=== PATIENT | female | born 2000 | race African-American/Black ===

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

== ENCOUNTER 2021-04-27 16:17 | Emergency (ER) | payer OTHER ==
[2021-04-27] MEDS ORDERED: Ondansetron ODT 4 MG TAB ONE (16:29)
[2021-04-27] MEDS ORDERED: Promethazine HCl 25 MG/ML VIAL ONE (17:28)
[2021-04-27] MEDS ORDERED: HYDROcodone/Acetaminophen 10/325 mg Tablet ONE (20:31)
== END 2021-04-27 18:58 | disposition home or self-care (01) ==
LOC: ERS 16:17
DX: R11.2 Nausea with vomiting, unspecified (principal); R19.7 Diarrhea, unspecified
CPT/HCPCS: J0500; J2550; Q0162

== ENCOUNTER 2021-04-28 04:43 | Emergency (ER) | payer OTHER ==
[2021-04-28] MEDS ORDERED: Ondansetron PF 4 MG/2 ML Vial ONE ×2 (05:08→06:34)
[2021-04-28 05:37] LABS: #Lymphocytes 1.3 thou/uL (1.20-3.40); #Monocytes 0.5 thou/uL (0.11-0.59); #Neutrophils 6.3 thou/uL (1.40-6.50); %Basophils 0.4 % (0.0-1.0); %Eosinophils 0.1 % (0.0-10.0); %Lymphocytes 16.2 % (28.0-48.0); %Monocytes 5.5 % (0.0-4.0); %Neutrophils 77.8 % (31.0-61.0); Hemoglobin 11.8 g/dL (12.0-16.0); Mean Corpuscular HGB CONC 31.3 g/dL (32.0-36.0); Mean Corpuscular Hemoglobin 25.1 pg (25.0-35.0); Mean Corpuscular Volume 80.2 fL (78.0-98.0); Mean Platelet Volume 8.4 fL (7.4-10.4); Platelet Count 455 thou/uL (130-400); RBC Distribution Width 14.4 % (11.5-14.5); White Blood Cell (WBC) Count 8.1 thou/uL (4.8-10.8)
[2021-04-28 05:54] LABS: BHCG - Serum Negative (NEGATIVE); Pregs Control Background? CLEAR/WHITE (CLR/WHITE); Pregs Control Bar Appear? YES (CONTROL BAR)
[2021-04-28 05:55] LABS: ALT (SGPT) 13 U/L (8-55); AST (SGOT) 19 U/L (5-30); Albumin 4.9 g/dL (3.5-5.0); Alkaline Phosphatase 77 U/L (40-100); Anion Gap 17 mmol/L (10-20); BUN (Urea Nitrogen) 10 mg/dL (8.4-21.0); Bilirubin, Total 0.6 mg/dL (0.2-1.2); Calc. Creatinine Clearance 0 mL/min (70-130); Calcium 10.5 mg/dL (7.8-10.44); Carbon Dioxide 19 mmol/L (22-29); Chloride 103 mmol/L (98-107); Globulin 4.2 g/dL (2.4-3.5); Glucose 105 mg/dL (70-105); Potassium 3.6 mmol/L (3.5-5.1); Protein, Total 9.1 g/dL (6.0-8.3); Sodium 135 mmol/L (136-145)
== END 2021-04-28 07:45 | disposition home or self-care (01) ==
LOC: ERS 04:43
DX: R11.2 Nausea with vomiting, unspecified (principal); R10.9 Unspecified abdominal pain; R19.7 Diarrhea, unspecified
CPT/HCPCS: 80053; 84703; 85025; 93005; 96360; 96372; 96374; 96376; J0500; J2405; J2550; Q0162

== ENCOUNTER 2021-05-01 18:32 | Emergency (ER) | payer OTHER ==
[2021-05-01 19:42] LABS: Mean Corpuscular HGB CONC 32.6 g/dL (32.0-36.0); Mean Corpuscular Hemoglobin 26.1 pg (25.0-35.0); Mean Corpuscular Volume 80.1 fL (78.0-98.0); Mean Platelet Volume 8.2 fL (7.4-10.4); Platelet Count 473 thou/uL (130-400); RBC Distribution Width 14.1 % (11.5-14.5); Red Blood Cell (RBC) Count 5.35 mill/uL (4.00-5.20); White Blood Cell (WBC) Count 6.7 thou/uL (4.8-10.8)
[2021-05-01 20:01] LABS: Eosinophils 1 % (0-10); Lymphocytes 40 % (28-48); MDiff Complete? YES; Monocytes 13 % (0-4); Neutrophil 45 % (31-61); RBC Morphology Normal; Vacuoles SLIGHT
[2021-05-01 20:21] LABS: Albumin 4.6 g/dL (3.5-5.0)
[2021-05-01] MEDS ORDERED: Ondansetron PF 4 MG/2 ML Vial ONE (20:21)
[2021-05-01 20:22] LABS: Chloride 99 mmol/L (98-107); Sodium 132 mmol/L (136-145)
[2021-05-01 20:23] LABS: Calcium 10.2 mg/dL (7.8-10.44); Globulin 4.6 g/dL (2.4-3.5); Glucose 72 mg/dL (70-105); Protein, Total 9.2 g/dL (6.0-8.3)
[2021-05-01 20:25] LABS: Bilirubin, Total 0.7 mg/dL (0.2-1.2); Carbon Dioxide 13 mmol/L (22-29)
[2021-05-01 20:26] LABS: Alkaline Phosphatase 77 U/L (40-100)
[2021-05-01 20:27] LABS: Calc. Creatinine Clearance 0 mL/min (70-130)
[2021-05-01 20:28] LABS: AST (SGOT) 28 U/L (5-30); BUN (Urea Nitrogen) 12 mg/dL (8.4-21.0)
[2021-05-01 20:29] LABS: ALT (SGPT) 12 U/L (8-55); Lipase 47 U/L (8-78)
[2021-05-01 20:51] LABS: Anion Gap 24 mmol/L (10-20)
[2021-05-01 21:55] LABS: Bilirubin Negative (Negative); Blood, Urine Negative (Negative); Clarity Clear (Clear); Glucose, Urine (Dipstick) Normal (Negative); Ketone, Urine 150 mg/dL (Negative); Leukocyte 250 Leu/uL (Negative); Mucous/LPF Rare LPF (<2+); Nitrite Negative (Negative); Protein, Urine (Dipstick) 20 mg/dL (Neg-Trace); RBC/HPF 0-3 HPF (0-3); Specific Gravity, Urine 1.023 (1.002-1.036); Urobilinogen 3 mg/dL (Less than 2)
[2021-05-01 21:56] LABS: Bacteria/HPF 1+ HPF (None Seen); Pregnancy Test - Urine (BHCG) Negative (Negative); Pregu Control Background? CLEAR/WHITE (CLR/WHITE); Pregu Control Bar Appear? YES (CONTROL BAR); Specific Gravity 1.023 (1.002-1.036)
[2021-05-01 22:03] LABS: Amphetamine Not Detected (NotDetected); Barbiturates Screen Not Detected (NotDetected); Benzodiazepine Screen Not Detected (NotDetected); Cocaine Metabolite Screen Not Detected (NotDetected); Methadone Not Detected (NotDetected); Methamphetamine Not Detected (NotDetected); Opiate Screen Not Detected (NotDetected); Oxycodone Screen Not Detected (NotDetected); Phencyclidine (PCP) Not Detected (NotDetected); THC/Cannabinoid Screen Detected (NotDetected); Tricyclic Screen Not Detected (NotDetected)
== END 2021-05-01 23:20 | disposition home or self-care (01) ==
LOC: ERS 18:32
DX: F12.988 Cannabis use, unspecified with other cannabis-induced disorder (principal); E86.0 Dehydration; R11.2 Nausea with vomiting, unspecified
CPT/HCPCS: 36415; 80053; 80306; 81003; 81015; 81025; 83605; 83690; 85025; 87040; 87086; 94760; J2405

== ENCOUNTER 2022-02-06 17:46 | Inpatient (IN) | payer OTHER ==
[~2022-02-06 17:46] MED LIST: Iopamidol-370 76% 500 ML 1 ML ONE
[2022-02-06] MEDS ORDERED: Promethazine HCl 12.5 MG in Sodium Chloride 0.9% 50 ML IVPB SCH (18:45)
[2022-02-06 18:49] LABS: Bilirubin Negative (Negative); Blood, Urine Negative (Negative); Clarity Clear (Clear); Glucose, Urine (Dipstick) Normal (Negative); Ketone, Urine Greater than 150 mg/dL (Negative); Leukocyte Negative Leu/uL (Negative); Nitrite Negative (Negative); Protein, Urine (Dipstick) 50 mg/dL (Neg-Trace); Specific Gravity, Urine 1.031 (1.002-1.036); Urobilinogen Normal mg/dL (Less than 2); pH, Urine 6.5 (5.0-9.0)
[2022-02-06] MEDS ORDERED: Dicyclomine 20 MG/2 ML VIAL ONE (18:53)
[2022-02-06] MEDS ORDERED: Ketorolac Tromethamine 30 MG/ML VIAL ONE (18:54)
[2022-02-06 18:57] LABS: Bacteria/HPF 1+ HPF (None Seen); Mucous/LPF 1+ LPF (<2+)
[2022-02-06 19:10] LABS: #Monocytes 0.4 thou/uL (0.11-0.59); %Basophils 0.1 % (0.0-1.0); %Eosinophils 0.1 % (0.0-10.0); %Lymphocytes 18.7 % (28.0-48.0); %Monocytes 6.5 % (0.0-4.0); %Neutrophils 74.6 % (31.0-61.0); Hemoglobin 11.3 g/dL (12.0-16.0); Mean Corpuscular HGB CONC 32.9 g/dL (32.0-36.0); Mean Corpuscular Hemoglobin 27.4 pg (25.0-35.0); Mean Corpuscular Volume 83.1 fL (78.0-98.0); Mean Platelet Volume 9.7 fL (7.4-10.4); Platelet Count 281 thou/uL (130-400); RBC Distribution Width 13.7 % (11.5-14.5); Red Blood Cell (RBC) Count 4.14 mill/uL (4.00-5.20); White Blood Cell (WBC) Count 5.3 thou/uL (4.8-10.8)
[2022-02-06 19:15] LABS: BHCG - Serum Negative (NEGATIVE); Pregs Control Background? CLEAR/WHITE (CLR/WHITE); Pregs Control Bar Appear? YES (CONTROL BAR)
[2022-02-06 20:02] LABS: ALT (SGPT) 12 U/L (8-55); AST (SGOT) 22 U/L (5-34); Albumin 4.8 g/dL (3.5-5.0); Alkaline Phosphatase 71 U/L (40-100); Anion Gap 20 mmol/L (10-20); BUN (Urea Nitrogen) 11 mg/dL (7.0-18.7); Bilirubin, Total 0.6 mg/dL (0.2-1.2); Calc. Creatinine Clearance 0 mL/min (70-130); Calcium 9.5 mg/dL (7.8-10.44); Carbon Dioxide 16 mmol/L (22-29); Chloride 108 mmol/L (98-107); Estimated GFR 110; Globulin 3.2 g/dL (2.4-3.5); Glucose 87 mg/dL (70-105); Lipase 19 U/L (8-78); Potassium 3.8 mmol/L (3.5-5.1); Sodium 140 mmol/L (136-145)
[2022-02-06] MEDS ORDERED: Piperacillin/Tazobactam 3.375 GM VIAL ONE (20:20)
[2022-02-06] MEDS ORDERED: Ondansetron PF 4 MG/2 ML Vial ONE (20:42)
[2022-02-06] MEDS ORDERED: Acetaminophen 325 MG TAB PO PRN (21:06)
[2022-02-06 22:06] LABS: Lactic Acid 1.5 mmol/L (0.5-2.2)
[2022-02-06] MEDS: Lactated Ringer's 1,000 ML IV SCH (23:34)
[2022-02-06] MEDS: Promethazine HCl 12.5 MG in Sodium Chloride 0.9% 50 ML IVPB PRN (23:34)
[2022-02-07] MEDS: Ondansetron PF 4 MG/2 ML Vial IVP PRN ×3 (02:30→18:28)
[2022-02-07] MEDS: Lactated Ringer's 1,000 ML IV SCH ×2 (06:08→14:34)
[2022-02-07] MEDS: Promethazine HCl 12.5 MG in Sodium Chloride 0.9% 50 ML IVPB PRN ×3 (07:02→20:31)
[2022-02-07 07:05] LABS: Hemoglobin 11.6 g/dL (12.0-16.0); Mean Corpuscular HGB CONC 31.8 g/dL (32.0-36.0); Mean Corpuscular Hemoglobin 26.9 pg (25.0-35.0); Mean Corpuscular Volume 84.6 fL (78.0-98.0); Mean Platelet Volume 8.8 fL (7.4-10.4); Platelet Count 314 thou/uL (130-400); RBC Distribution Width 13.8 % (11.5-14.5); Red Blood Cell (RBC) Count 4.32 mill/uL (4.00-5.20); White Blood Cell (WBC) Count 6.3 thou/uL (4.8-10.8)
[2022-02-07 07:34] LABS: Anion Gap 15 mmol/L (10-20); BUN (Urea Nitrogen) 10 mg/dL (7.0-18.7); Calc. Creatinine Clearance 0 mL/min (70-130); Calcium 8.9 mg/dL (7.8-10.44); Carbon Dioxide 19 mmol/L (22-29); Chloride 106 mmol/L (98-107); Estimated GFR 125; Glucose 90 mg/dL (70-105); Potassium 3.2 mmol/L (3.5-5.1); Sodium 137 mmol/L (136-145)
[2022-02-07] MEDS ORDERED: Potassium Chloride 40 MEQ in Sodium Chloride 0.9% 250 ML 250 ML IVPB SCH (08:15)
[2022-02-07 10:29] LABS: Band 5 % (5-11); Eosinophils 2 % (0-10); Lymphocytes 26 % (28-48); MDiff Complete? YES; Monocytes 6 % (0-4); Neutrophil 61 % (31-61); RBC Morphology Normal
[2022-02-07] MEDS ORDERED: Calcium Carbonate 500 MG ChewTAB PO PRN (12:15)
[2022-02-07] MEDS ORDERED: Pantoprazole 40 MG VIAL IVP SCH (15:45)
[2022-02-07] MEDS ORDERED: Capsaicin 0.025% Cream 60 gm Tube TOP SCH ×2 (22:45→22:46)
[2022-02-08] MEDS: Ondansetron PF 4 MG/2 ML Vial IVP PRN ×2 (02:53→20:06)
[2022-02-08] MEDS: Lactated Ringer's 1,000 ML IV SCH ×2 (02:53→06:35)
[2022-02-08] MEDS: Capsaicin 0.025% Cream 60 gm Tube TOP SCH ×3 (09:33→20:13)
[2022-02-08] MEDS: Promethazine HCl 12.5 MG in Sodium Chloride 0.9% 50 ML IVPB PRN (09:51)
[2022-02-08] MEDS ORDERED: Haloperidol Lactate 5 MG/ML VIAL SLOW IVP SCH (14:30)
[2022-02-08] MEDS: Ondansetron ODT 4 MG TAB PO PRN (15:48)
[2022-02-08] MEDS ORDERED: Haloperidol 1 MG TAB PO SCH (16:00)
[2022-02-08] MEDS ORDERED: Promethazine HCl 12.5 MG in Sodium Chloride 0.9% 50 ML IVPB PRN (18:53)
[2022-02-09] MEDS: Ondansetron PF 4 MG/2 ML Vial IVP PRN (04:13)
[2022-02-09 07:31] LABS: Anion Gap 19 mmol/L (10-20); BUN (Urea Nitrogen) 12 mg/dL (7.0-18.7); Calc. Creatinine Clearance 0 mL/min (70-130); Calcium 9.3 mg/dL (7.8-10.44); Carbon Dioxide 17 mmol/L (22-29); Chloride 100 mmol/L (98-107); Estimated GFR 115; Glucose 77 mg/dL (70-105); Potassium 3.4 mmol/L (3.5-5.1); Sodium 133 mmol/L (136-145)
[2022-02-09] MEDS ORDERED: Potassium Chloride 20 MEQ in Premix Bag 1 BAG IVPB SCH (11:15)
[2022-02-09] MEDS: Capsaicin 0.025% Cream 60 gm Tube TOP SCH ×3 (11:33→21:16)
[2022-02-09] MEDS: Promethazine 25 MG TAB PO PRN (18:45)
[2022-02-10] MEDS: Ondansetron ODT 4 MG TAB PO PRN ×2 (07:16→14:01)
[2022-02-10] MEDS: Capsaicin 0.025% Cream 60 gm Tube TOP SCH ×3 (10:57→20:02)
[2022-02-10] MEDS: Promethazine 25 MG TAB PO PRN (17:14)
[2022-02-10] MEDS: Ondansetron PF 4 MG/2 ML Vial IVP PRN ×2 (17:36→22:25)
[2022-02-11] MEDS: Ondansetron PF 4 MG/2 ML Vial IVP PRN ×2 (02:49→07:58)
[2022-02-11] MEDS: Promethazine 25 MG TAB PO PRN (09:30)
[2022-02-11] MEDS ORDERED: Metoclopramide HCl 10 MG TAB PO PRN (09:36)
[2022-02-11] MEDS: Capsaicin 0.025% Cream 60 gm Tube TOP SCH (10:41)
[2022-02-11] MEDS ORDERED: PROPOFOL 200 MG/20 ML VIAL ONE (12:39)
[2022-02-11] MEDS ORDERED: Promethazine 25 MG TAB PO PRN (12:44)
[2022-02-11] MEDS ORDERED: Ondansetron PF 4 MG/2 ML Vial ONE (12:49)
[2022-02-11] MEDS ORDERED: Promethazine HCl 25 MG/ML VIAL IM PRN (12:51)
[2022-02-11] MEDS ORDERED: Ondansetron HCl/PF 4 MG/2 ML Vial IVP PRN (12:51)
[2022-02-11] MEDS ORDERED: Promethazine HCl 25 MG/ML VIAL IVPB PRN (12:51)
[2022-02-11] MEDS ORDERED: Lidocaine 1% PF 5 ML VIAL ONE (12:53)
[2022-02-11] MEDS ORDERED: Capsaicin 0.025% Cream 60 gm Tube TOP SCH (13:00)
[2022-02-11] MEDS ORDERED: Ondansetron ODT 4 MG TAB PO SCH (13:00)
[2022-02-11] MEDS ORDERED: Promethazine HCl 25 MG/ML VIAL ONE (13:05)
[2022-02-11] MEDS ORDERED: Metoclopramide HCl 10 MG/2 ML VIAL ONE (13:22)
[2022-02-11] MEDS ORDERED: Labetalol HCl 100 MG/20 ML VIAL ONE (13:22)
[2022-02-11] MEDS ORDERED: Metoclopramide HCl 10 MG/2 ML VIAL IVP PRN (13:40)
[2022-02-11] MEDS ORDERED: Methyl Salicylate/Menthol 85 GM TUBE TOP SCH (13:45)
[2022-02-11] MEDS: Metoclopramide HCl 10 MG TAB PO SCH ×4 (14:10→23:59)
[2022-02-11] MEDS: Dextrose 5 % And 0.9 % NaCl 1,000 ML IV SCH (14:39)
[2022-02-11] MEDS: Ondansetron ODT 4 MG TAB PO SCH ×2 (16:57→23:59)
[2022-02-11] MEDS: Methyl Salicylate/Menthol 85 GM TUBE TOP SCH (20:56)
[2022-02-12] MEDS: Dextrose 5 % And 0.9 % NaCl 1,000 ML IV SCH ×2 (03:01→04:05)
[2022-02-12] MEDS: Metoclopramide HCl 10 MG TAB PO SCH ×2 (04:01→09:54)
[2022-02-12] MEDS: Ondansetron ODT 4 MG TAB PO SCH ×2 (05:35→12:42)
[2022-02-12] MEDS: Methyl Salicylate/Menthol 85 GM TUBE TOP SCH (09:54)
[2022-02-12 12:55] VITALS: BP 103/74; TEMP 97.8
[2022-02-12 18:38] LABS: Cytoplasmic (C-ANCA) <1:20 titer (Neg:<1:20); Myeloperoxidase AutoAbs <0.2 units (0.0-0.9); Perinuclear (P-ANCA) <1:20 titer (Neg:<1:20); Proteinase-3 AutoAbs Less than 0.2 units (0.0-0.9)
== END 2022-02-12 12:54 | disposition home or self-care (01) | DRG 392 ==
LOC: ERS 17:46 → T4-B 20:48 → OBSVTOIN 02-08 14:09
PROVIDERS: ADMIT Family Medicine; ATTEND Family Medicine
PROC: 0DB68ZX Excision of Stomach, Via Natural or Artificial Opening Endoscopic, Diagnostic (ICD-10-PCS; principal; 2022-02-11)
DX: R11.2 Nausea with vomiting, unspecified (principal); E87.2 Acidosis; F17.290 Nicotine dependence, other tobacco product, uncomplicated; K29.70 Gastritis, unspecified, without bleeding; K44.9 Diaphragmatic hernia without obstruction or gangrene; I88.0 Nonspecific mesenteric lymphadenitis; K21.00 Gastro-esophageal reflux disease with esophagitis, without bleeding; F12.10 Cannabis abuse, uncomplicated; K52.9 Noninfective gastroenteritis and colitis, unspecified; Z20.822 Contact with and (suspected) exposure to COVID-19; Z98.890 Other specified postprocedural states; Z71.6 Tobacco abuse counseling
CPT/HCPCS: 36415; 36416; 74177; 80048; 80053; 81003; 81015; 83516; 83605; 83690; 84703; 85025; 85652; 86037; 86140; 87040; 88305; 88342; 96365; 96367; 96372; 96375; 96376; C9113; G0378; J1885; J2405; J2543; J2550; J2704; J2765; J3480; J7042; J7050; J7120; Q0162; Q0169; Q9967

== ENCOUNTER 2022-08-14 16:01 | Emergency (ER) | payer OTHER ==
[2022-08-14 16:37] LABS: #Lymphocytes 1.3 thou/uL (1.20-3.40); #Monocytes 0.3 thou/uL (0.11-0.59); #Neutrophils 5.1 thou/uL (1.40-6.50); %Basophils 0.3 % (0.0-1.0); %Eosinophils 0.4 % (0.0-10.0); %Monocytes 4.9 % (0.0-10.0); %Neutrophils 75.4 % (42.0-75.0); Hemoglobin 13.3 g/dL (12.0-16.0); Mean Corpuscular HGB CONC 34.1 g/dL (32.0-36.0); Mean Corpuscular Hemoglobin 30.1 pg (27.0-31.0); Mean Corpuscular Volume 88.1 fl (78.0-98.0); Mean Platelet Volume 8.5 fL (7.4-10.4); Platelet Count 344 10x3/uL (130-400); RBC Distribution Width 12.3 % (11.5-14.5); Red Blood Cell (RBC) Count 4.43 mill/uL (4.20-5.40); White Blood Cell (WBC) Count 6.8 10x3/uL (4.8-10.8)
[2022-08-14 16:41] LABS: Pregs Control Background? CLEAR/WHITE (CLR/WHITE); Pregs Control Bar Appear? YES (CONTROL BAR)
[2022-08-14 16:45] LABS: BHCG - Serum POSITIVE (NEGATIVE)
[2022-08-14 16:59] LABS: ALT (SGPT) 16 U/L (8-55); AST (SGOT) 21 U/L (5-34); Albumin 4.8 g/dL (3.5-5.0); Alkaline Phosphatase 66 U/L (40-110); Anion Gap 17 mmol/L (10-20); BUN (Urea Nitrogen) 9 mg/dL (7.0-18.7); Bilirubin, Total 0.5 mg/dL (0.2-1.2); Calc. Creatinine Clearance 0 mL/min (70-130); Calcium 9.9 mg/dL (7.8-10.44); Carbon Dioxide 14 mmol/L (22-29); Chloride 107 mmol/L (98-107); Estimated GFR 122; Globulin 3.5 g/dL (2.4-3.5); Glucose 115 mg/dL (70-105); Lipase 20 U/L (8-78); Potassium 3.7 mmol/L (3.5-5.1); Protein, Total 8.3 g/dL (6.0-8.3); Sodium 134 mmol/L (136-145)
[2022-08-14] MEDS ORDERED: Ondansetron ODT 4 MG TAB ONE (17:38)
[2022-08-14] MEDS ORDERED: Promethazine HCl 25 MG in Sodium Chloride 0.9% 50 ML IVPB SCH (19:45)
[2022-08-14] MEDS ORDERED: Metoclopramide HCl 10 MG/2 ML VIAL ONE (21:56)
== END 2022-08-14 23:13 | disposition home or self-care (01) ==
LOC: ERS 16:01
DX: O21.9 Vomiting of pregnancy, unspecified (principal); Z3A.01 Less than 8 weeks gestation of pregnancy
CPT/HCPCS: 36415; 76856; 80053; 83690; 84702; 84703; 85025; 93976; 96365; 96366; 96375; J2550; J2765; Q0162

== ENCOUNTER 2023-04-04 22:38 | Emergency (ER) | payer OTHER | END 2023-04-05 00:18 | disposition short-term general hospital (02) | LOC: ERS 22:38 | DX: O60.03 Preterm labor without delivery, third trimester (principal); Z3A.37 37 weeks gestation of pregnancy | CPT/HCPCS: 99284 ==

== ENCOUNTER 2023-07-19 20:49 | Emergency (ER) | payer OTHER ==
[~2023-07-19 20:49] MED LIST changes: -Iopamidol-370 76% 500 ML 1 ML ONE; +Iopamidol-370 76% 500 ML MDV (1 ML CHARGE) ONE
[2023-07-19 21:55] LABS: #Eosinphils 0.2 thou/uL (0.0-0.7); #Monocytes 0.9 thou/uL (0.11-0.59); #Neutrophils 4.9 thou/uL (1.40-6.50); %Basophils 0.5 % (0.0-1.0); %Eosinophils 2.4 % (0.0-10.0); %Lymphocytes 20.4 % (21.0-51.0); %Monocytes 11.5 % (0.0-10.0); %Neutrophils 64.9 % (42.0-75.0); Hematocrit 36.3 % (36.0-47.0); Hemoglobin 11.6 g/dL (12.0-16.0); Mean Corpuscular Hemoglobin 26.1 pg (27.0-31.0); Mean Corpuscular Volume 81.8 fl (78.0-98.0); Platelet Count 158 10x3/uL (130-400); RBC Distribution Width 15.8 % (11.5-14.5); Red Blood Cell (RBC) Count 4.44 mill/uL (4.20-5.40); White Blood Cell (WBC) Count 7.6 10x3/uL (4.8-10.8)
[2023-07-19] MEDS ORDERED: Dexamethasone 10 MG/ML VIAL ONE (21:57)
[2023-07-19] MEDS ORDERED: Morphine 4 MG/ML VIAL ONE (21:57)
[2023-07-19] MEDS ORDERED: Ketorolac Tromethamine 30 MG (1 mL) VIAL ONE (21:58)
[2023-07-19 22:06] LABS: BHCG - Serum Negative (NEGATIVE); Pregs Control Background? CLEAR/WHITE (CLR/WHITE); Pregs Control Bar Appear? YES (CONTROL BAR)
[2023-07-19] MEDS ORDERED: Bicillin LA 1.2 MILLION UNITS/2 ML SYRINGE ONE (23:20)
== END 2023-07-19 23:44 | disposition home or self-care (01) ==
LOC: ERS 20:49
DX: J02.0 Streptococcal pharyngitis (principal)
CPT/HCPCS: 70491; 83605; 84703; 85025; 87430; 96372; 96374; 96375; J0561; J1100; J1885; J2270; Q9967

== ENCOUNTER 2023-11-28 12:24 | Emergency (ER) | payer OTHER ==
[2023-11-28 13:10] LABS: #Basophils Less than 0.03 10x3/uL (0.0-0.2); #Eosinphils Less than 0.03 10x3/uL (0.0-0.7); %Basophils 0.3 % (0.0-1.0); %Lymphocytes 13.6 % (21.0-51.0); %Monocytes 12.5 % (0.0-10.0); %Neutrophils 73.3 % (42.0-75.0); Hematocrit 39.4 % (36.0-47.0); Mean Corpuscular Hemoglobin 24.8 pg (27.0-31.0); Mean Platelet Volume 10.5 fL (7.4-10.4); Platelet Count 520 10x3/uL (130-400); RBC Distribution Width 14.6 % (11.5-14.5); Red Blood Cell (RBC) Count 5.25 mill/uL (4.20-5.40)
[2023-11-28] MEDS ORDERED: Haloperidol Lactate 5 MG/ML VIAL ONE (13:10)
[2023-11-28 13:34] LABS: ALT (SGPT) 14 U/L (8-55); AST (SGOT) 36 U/L (5-34); Albumin 5.1 g/dL (3.5-5.0); Alkaline Phosphatase 82 U/L (40-110); Anion Gap 22 mmol/L (10-20); BHCG - Serum Negative (NEGATIVE); BUN (Urea Nitrogen) 18 mg/dL (7.0-18.7); Bilirubin, Total 0.7 mg/dL (0.2-1.2); Calc. Creatinine Clearance 0 mL/min (70-130); Calcium 11.2 mg/dL (7.8-10.44); Carbon Dioxide 20 mmol/L (22-29); Chloride 103 mmol/L (98-107); Estimated GFR 66; Globulin 4.6 g/dL (2.4-3.5); Glucose 96 mg/dL (70-105); Lipase 25 U/L (8-78); Potassium 3.5 mmol/L (3.5-5.1); Pregs Control Background? CLEAR/WHITE (CLR/WHITE); Pregs Control Bar Appear? YES (CONTROL BAR); Protein, Total 9.7 g/dL (6.0-8.3); Sodium 141 mmol/L (136-145)
== END 2023-11-28 14:06 | disposition left against medical advice (07) ==
LOC: ERS 12:24
DX: R11.2 Nausea with vomiting, unspecified (principal); Z53.21 Procedure and treatment not carried out due to patient leaving prior to being seen by health care provider; Z55.6 Problems related to health literacy
CPT/HCPCS: 80053; 83690; 84703; 85025; 96361; 96374; J1630